=== PATIENT | male | born 2000 ===

== ENCOUNTER → 2022-05-13 | Outpatient (CLI) | payer BC ==
[2022-05-13 10:03] LABS: Urine Bacteria NONE SEEN /hpf (None Seen); Urine Blood Negative /uL (Negative); Urine Mucus FEW (None Seen); Urine Specific Gravity 1.022 (1.001-1.035); Urine WBC <1 /hpf (0 - 3)
== END | disposition home or self-care (01) ==
LOC: LAB 09:45
PROVIDERS: ATTEND Internal Medicine
DX: R94.6 Abnormal results of thyroid function studies (principal); R82.90 Unspecified abnormal findings in urine
CPT/HCPCS: 36415; 81001; 84439; 84443

== ENCOUNTER → 2022-06-06 | Outpatient (CLI) | payer BC ==
[2022-06-06 08:37] LABS: Calcium 8.9 mg/dL (8.5-10.1); Potassium 4.1 mmol/L (3.5-5.1)
[2022-06-06 08:40] LABS: BUN/Creatinine Ratio 14.5
[2022-06-06 09:10] LABS: Urine Bacteria NONE SEEN /hpf (None Seen); Urine Blood TRACE /uL (Negative); Urine Specific Gravity 1.023 (1.001-1.035)
[2022-06-06 09:34] LABS: Urine WBC 0-3 /hpf (0 - 3); Urine WBC Clumps NONE SEEN /hpf (None Seen)
[2022-06-06 09:35] LABS: Urine Ca Carbonate Crystal NONE SEEN /hpf (None Seen)
[2022-06-06 09:36] LABS: Urine Budding Yeast NONE SEEN /hpf (None Seen); Urine Hyaline Cast 0 /lpf (0 - 2); Urine Mucus NONEEEN (None Seen)
[2022-06-06 09:37] LABS: Urine Amorphous Crystal NONE SEEN /hpf (None Seen); Urine Sperm NONE SEEN /hpf (None Seen)
== END | disposition home or self-care (01) ==
LOC: LAB 07:54
PROVIDERS: ATTEND Internal Medicine
DX: R82.90 Unspecified abnormal findings in urine (principal)
CPT/HCPCS: 36415; 80048; 81001

== ENCOUNTER → 2023-02-08 | Outpatient (CLI) | payer BC | END | disposition home or self-care (01) | LOC: LAB 07:38 | PROVIDERS: ATTEND Internal Medicine | DX: E04.1 Nontoxic single thyroid nodule (principal); R79.89 Other specified abnormal findings of blood chemistry | CPT/HCPCS: 36415; 84439; 84443 ==